=== PATIENT | male | born 1945 | race Caucasian/White ===

== ENCOUNTER 2018-02-25 18:24 | Inpatient (IN) | payer OTHER ==
[~2018-02-25] VITALS: Ht 182.9 cm; Wt 73.0 kg
[2018-02-25 19:03] LABS: BASOPHIL (%) 0.4 % (0-1); EOSINOPHIL (%) 0.4 % (0-5); HEMATOCRIT 28.7 % (38.0-50.0); HEMOGLOBIN 9.3 G/DL (12.5-16.6); IMMATURE GRANULOCYTE (%) 1.5 % (0.0-0.7); LYMPHOCYTE (%) 8.4 % (15-42); LYMPHOCYTE COUNT 0.6 K/uL (1.0-2.8); MCH 31.4 PG (29.0-34.0); MCHC 32.4 G/DL (30.0-36.0); MONOCYTE (%) 13.3 % (3-12); NEUTROPHIL COUNT 5.5 K/uL (1.8-6.4); NRBC (%) 1.5 /100 WBC (0-0); PLATELET COUNT 199 K/uL (156-360); RBC DIS.WIDTH-CV 18.9 % (11.8-14.6); RBC DIS.WIDTH-SD 66.1 % (39-53); RED BLOOD COUNT 2.96 M/uL (4.00-5.50); WHITE BLOOD COUNT 7.2 K/uL (4.1-10.2)
[2018-02-25 19:11] LABS: ALBUMIN 3.2 g/dL (3.2-4.8); CHLORIDE 97 mEq/L (99-109); POTASSIUM 5.2 mEq/L (3.7-5.4); SODIUM 141 mEq/L (136-147)
[2018-02-25 19:12] LABS: INTER. NORMALIZED RATIO 2.1
[2018-02-25 19:13] LABS: GLUCOSE 88 mg/dL (70-99); TOTAL PROTEIN 5.5 g/dL (6.4-8.3)
[2018-02-25 19:14] LABS: PTT 31.9 SEC (25-37)
[2018-02-25 19:15] LABS: TOTAL BILIRUBIN 1.2 mg/dL (0.0-1.0)
[2018-02-25 19:17] LABS: ALKALINE PHOSPHATASE 224 IU/L (3-129); CREATININE 6.1 mg/dL (0.6-1.3); GFR ESTIMATE (CALCULATED) 10 mL/min/ (58.99-99999)
[2018-02-25 19:18] LABS: AST (GOT) 48 IU/L (2-34); UREA NITROGEN (BUN) 47 mg/dL (9-23)
[2018-02-25 19:20] LABS: ALT (GPT) 28 IU/L (3-49)
[2018-02-25 19:22] LABS: TROP-I INTERPRETATION POSITIVE
[2018-02-25 19:26] LABS: TROPONIN-I 0.77 ng/mL (0.0-0.30)
[2018-02-25] MEDS ORDERED: ADULT ASPIRIN R81 MG PO (21:57)
[2018-02-25] MEDS ORDERED: BLOOD PRESSURE (21:58)
[2018-02-25] MEDS ORDERED: BLOOD THINNER (21:59)
[2018-02-26] VITALS (7 sets, daily range): BP systolic 86–137; BP diastolic 52–87
[2018-02-26 02:49] LABS: TROP-I INTERPRETATION POSITIVE
[2018-02-26 02:51] LABS: APPEARANCE SL.HAZY ((CLEAR)); BILIRUBIN NEGATIVE; BLOOD SMALL; COLOR YELLOW ((YELLOW)); GLUCOSE (STRIP) 150; KETONES NEGATIVE; LEUKOCYTES SMALL; NITRITE NEGATIVE; PROTEIN (STRIP) 100; SPECIFIC GRAVITY 1.009 (1.000-1.030); UROBILINOGEN 0.2 MG/DL (0.2-1.0)
[2018-02-26 02:57] LABS: TROPONIN-I 1.13 ng/mL (0.0-0.30)
[2018-02-26 03:09] LABS: BACTERIA NONE SEEN /HPF; EPITHELIAL CELLS NONE SEEN /HPF; MUCUS NONE SEEN /LPF; RED BLOOD CELLS 30-40 /HPF (0-5); UCUL ADDED? YES; WHITE BLOOD CELLS 20-30 /HPF (0-5)
[2018-02-26 08:39] LABS: HEMATOCRIT 32.4 % (38.0-50.0); MCH 30.8 PG (29.0-34.0); MCHC 30.9 G/DL (30.0-36.0); MCV 99.7 FL (86-99); NRBC (%) 0.4 /100 WBC (0-0); PLATELET COUNT 195 K/uL (156-360); RBC DIS.WIDTH-CV 18.8 % (11.8-14.6); RBC DIS.WIDTH-SD 68.1 % (39-53); RED BLOOD COUNT 3.25 M/uL (4.00-5.50); WHITE BLOOD COUNT 6.8 K/uL (4.1-10.2)
[2018-02-26 08:44] LABS: INTER. NORMALIZED RATIO 2.1
[2018-02-26 09:00] LABS: CHLORIDE 98 MEQ/L (99-109); CREATININE 6.4 MG/DL (0.6-1.3); GFR ESTIMATE (CALCULATED) 9 mL/min/ (58.99-99999); POTASSIUM 5.9 MEQ/L (3.7-5.4); SODIUM 141 MEQ/L (136-147); UREA NITROGEN (BUN) 57 mg/dL (9-23)
[2018-02-26 09:02] LABS: GLUCOSE 144 mg/dL (70-99)
[2018-02-26 09:09] LABS: TROP-I INTERPRETATION POSITIVE; TROPONIN-I 1.49 ng/mL (0.0-0.30)
[2018-02-26 20:21] LABS: CHLORIDE 97 MEQ/L (99-109); CREATININE 6.6 MG/DL (0.6-1.3); GFR ESTIMATE (CALCULATED) 9 mL/min/ (58.99-99999); GLUCOSE 201 mg/dL (70-99); POTASSIUM 5.2 MEQ/L (3.7-5.4); SODIUM 139 MEQ/L (136-147); UREA NITROGEN (BUN) 64 mg/dL (9-23)
[2018-02-27 05:19] VITALS: BP 142/64
[2018-02-27 06:06] LABS: HEMATOCRIT 30.2 % (38.0-50.0); HEMOGLOBIN 9.7 G/DL (12.5-16.6); MCH 31.6 PG (29.0-34.0); MCHC 32.1 G/DL (30.0-36.0); MCV 98.4 FL (86-99); NRBC (%) 1.1 /100 WBC (0-0); PLATELET COUNT 212 K/uL (156-360); RBC DIS.WIDTH-CV 18.9 % (11.8-14.6); RED BLOOD COUNT 3.07 M/uL (4.00-5.50); WHITE BLOOD COUNT 11.8 K/uL (4.1-10.2)
[2018-02-27 06:17] LABS: ALBUMIN 3.1 G/DL (3.2-4.8); ALKALINE PHOSPHATASE 185 IU/L (3-129); ALT (GPT) 69 IU/L (3-49); AST (GOT) 84 IU/L (2-34); CHLORIDE 97 MEQ/L (99-109); CREATININE 6.9 MG/DL (0.6-1.3); GFR ESTIMATE (CALCULATED) 8 mL/min/ (58.99-99999); GLUCOSE 162 mg/dL (70-99); POTASSIUM 5.4 MEQ/L (3.7-5.4); SODIUM 140 MEQ/L (136-147); TOTAL BILIRUBIN 1.1 MG/DL (0.0-1.0); TOTAL PROTEIN 5.1 G/DL (6.4-8.3); UREA NITROGEN (BUN) 76 mg/dL (9-23); VANCOMYCIN, TROUGH 11.1 MCG/ML (10-20)
[2018-02-27 06:22] LABS: TROP-I INTERPRETATION POSITIVE; TROPONIN-I 1.73 ng/mL (0.0-0.30)
[2018-02-27 07:24] VITALS: BP 111/85
[2018-02-27 15:20] VITALS: BP 98/74
[2018-02-27 19:25] VITALS: BP 154/99
[2018-02-27 20:43] VITALS: BP 107/78
[2018-02-28] VITALS (8 sets, daily range): BP systolic 103–155; BP diastolic 61–86
[2018-02-28 05:37] LABS: HEMATOCRIT 28.3 % (38.0-50.0); HEMOGLOBIN 9.1 G/DL (12.5-16.6); MCH 31.4 PG (29.0-34.0); MCHC 32.2 G/DL (30.0-36.0); MCV 97.6 FL (86-99); PLATELET COUNT 194 K/uL (156-360); RBC DIS.WIDTH-CV 19.1 % (11.8-14.6); WHITE BLOOD COUNT 9.4 K/uL (4.1-10.2)
[2018-02-28 05:49] LABS: INTER. NORMALIZED RATIO 1.7
[2018-02-28 06:29] LABS: CHLORIDE 99 MEQ/L (99-109); GLUCOSE 158 mg/dL (70-99); SODIUM 144 MEQ/L (136-147); UREA NITROGEN (BUN) 53 mg/dL (9-23)
[2018-02-28 06:37] LABS: CREATININE 5.6 MG/DL (0.6-1.3); GFR ESTIMATE (CALCULATED) 11 mL/min/ (58.99-99999); POTASSIUM 4.2 MEQ/L (3.7-5.4)
[2018-02-28 07:05] LABS: TROP-I INTERPRETATION POSITIVE; TROPONIN-I 1.42 ng/mL (0.0-0.30)
[2018-02-28 11:59] LABS: ANTI-HEPATITIS B CORE (TOTAL) Nonreactive
[2018-02-28 12:07] LABS: HEPATITIS B SURFACE ANTIGEN Nonreactive
[2018-02-28 12:08] LABS: HEPATITIS C ANTIBODY Nonreactive
[2018-02-28 12:10] LABS: HEPATITIS B SURFACE ANTIBODY REACTIVE
[2018-03-01 03:23] LABS: INTER. NORMALIZED RATIO 1.7
[2018-03-01 04:32] VITALS: BP 130/58
[2018-03-01 08:24] VITALS: BP 119/64
[2018-03-01 08:51] LABS: HEMATOCRIT 29.1 % (38.0-50.0); HEMOGLOBIN 9.1 G/DL (12.5-16.6); MCH 31.1 PG (29.0-34.0); MCHC 31.3 G/DL (30.0-36.0); MCV 99.3 FL (86-99); NRBC (%) 2.4 /100 WBC (0-0); PLATELET COUNT 194 K/uL (156-360); RBC DIS.WIDTH-CV 19.4 % (11.8-14.6); RBC DIS.WIDTH-SD 67.3 % (39-53); RED BLOOD COUNT 2.93 M/uL (4.00-5.50); WHITE BLOOD COUNT 8.3 K/uL (4.1-10.2)
[2018-03-01 09:08] LABS: ALBUMIN 3.2 G/DL (3.2-4.8); CHLORIDE 96 MEQ/L (99-109); CREATININE 6.4 MG/DL (0.6-1.3); GFR ESTIMATE (CALCULATED) 9 mL/min/ (58.99-99999); PHOSPHORUS 6.6 mg/dL (2.5-4.9); POTASSIUM 4.9 MEQ/L (3.7-5.4); SODIUM 137 MEQ/L (136-147); UREA NITROGEN (BUN) 62 mg/dL (9-23)
[2018-03-01 09:10] LABS: GLUCOSE 117 mg/dL (70-99)
[2018-03-01 12:33] VITALS: BP 108/61
[2018-03-01 14:56] LABS: HEMATOCRIT 30.5 % (38.0-50.0); HEMOGLOBIN 9.5 G/DL (12.5-16.6); MCV 100.7 FL (86-99)
[2018-03-01 16:49] VITALS: BP 116/83
[2018-03-01 22:34] LABS: HEMATOCRIT 28.8 % (38.0-50.0); HEMOGLOBIN 9.1 G/DL (12.5-16.6); MCV 99.7 FL (86-99)
[2018-03-01 22:41] LABS: INTER. NORMALIZED RATIO 1.9
[2018-03-01 22:55] LABS: PTT 34.7 SEC (25-37)
[2018-03-01 23:10] VITALS: BP 140/60
[2018-03-02 06:08] LABS: HEMATOCRIT 29.8 % (38.0-50.0); HEMOGLOBIN 9.4 G/DL (12.5-16.6); MCH 30.9 PG (29.0-34.0); MCHC 31.5 G/DL (30.0-36.0); NRBC (%) 3.7 /100 WBC (0-0); PLATELET COUNT 212 K/uL (156-360); RBC DIS.WIDTH-CV 20.1 % (11.8-14.6); RBC DIS.WIDTH-SD 67.6 % (39-53); RED BLOOD COUNT 3.04 M/uL (4.00-5.50); WHITE BLOOD COUNT 11.2 K/uL (4.1-10.2)
[2018-03-02 06:12] LABS: INTER. NORMALIZED RATIO 2.1
[2018-03-02 06:37] LABS: CHLORIDE 95 MEQ/L (99-109); CREATININE 5.6 MG/DL (0.6-1.3); GFR ESTIMATE (CALCULATED) 11 mL/min/ (58.99-99999); POTASSIUM 5.5 MEQ/L (3.7-5.4); SODIUM 133 MEQ/L (136-147); UREA NITROGEN (BUN) 52 mg/dL (9-23)
[2018-03-02 06:49] LABS: GLUCOSE 76 mg/dL (70-99); PTT 53.4 SEC (25-37)
[2018-03-02 07:27] VITALS: BP 112/78
[2018-03-02 16:43] VITALS: BP 109/73
[2018-03-02 18:14] LABS: HEMATOCRIT 32.4 % (38.0-50.0); HEMOGLOBIN 10.2 G/DL (12.5-16.6); MCV 99.1 FL (86-99)
[2018-03-02 22:40] VITALS: BP 132/93
[2018-03-03 06:06] LABS: HEMATOCRIT 35.5 % (38.0-50.0); HEMOGLOBIN 10.7 G/DL (12.5-16.6); MCH 30.5 PG (29.0-34.0); MCHC 30.1 G/DL (30.0-36.0); MCV 101.1 FL (86-99); NRBC (%) 4.6 /100 WBC (0-0); RBC DIS.WIDTH-CV 21.1 % (11.8-14.6); RBC DIS.WIDTH-SD 73.1 % (39-53); RED BLOOD COUNT 3.51 M/uL (4.00-5.50); WHITE BLOOD COUNT 25.1 K/uL (4.1-10.2)
[2018-03-03 06:17] LABS: INTER. NORMALIZED RATIO 3.2
[2018-03-03 06:19] LABS: PLATELET COUNT 297 K/uL (156-360)
[2018-03-03 07:24] VITALS: BP 102/67
[2018-03-03 08:42] LABS: INTACT PARATHYROID HORMONE 696 pg/mL (10-69)
[2018-03-03 08:45] LABS: CHLORIDE 84 MEQ/L (99-109); CREATININE 6.8 MG/DL (0.6-1.3); GFR ESTIMATE (CALCULATED) 9 mL/min/ (58.99-99999); GLUCOSE 66 mg/dL (70-99); IRON 151 MCG/DL (35-150); PHOSPHORUS 9.3 mg/dL (2.5-4.9); POTASSIUM 6.5 MEQ/L (3.7-5.4); SODIUM 143 MEQ/L (136-147); TRANSFERRIN (TIBC) 157.7 mg/dL (215-380); TRANSFERRIN SATUR. 96 % (20-55); UREA NITROGEN (BUN) 73 mg/dL (9-23)
[2018-03-03 09:02] LABS: ALBUMIN 3.1 G/DL (3.2-4.8); CHLORIDE 87 MEQ/L (99-109); CREATININE 6.7 MG/DL (0.6-1.3); GFR ESTIMATE (CALCULATED) 9 mL/min/ (58.99-99999); IRON 148 MCG/DL (35-150); POTASSIUM 5.9 MEQ/L (3.7-5.4); SODIUM 137 MEQ/L (136-147); TRANSFERRIN (TIBC) 162.8 mg/dL (215-380); UREA NITROGEN (BUN) 72 mg/dL (9-23)
[2018-03-03 09:03] LABS: GLUCOSE < 10 mg/dL (70-99); TRANSFERRIN SATUR. 91 % (20-55)
[2018-03-03 12:04] VITALS: BP 108/79
[2018-03-03 16:49] VITALS: BP 109/62
[2018-03-03 17:06] LABS: POTASSIUM 5.2 MEQ/L (3.7-5.4); SODIUM 138 MEQ/L (136-147); UREA NITROGEN (BUN) 44 mg/dL (9-23)
[2018-03-03 17:07] LABS: CHLORIDE 97 MEQ/L (99-109); CREATININE 4.2 MG/DL (0.6-1.3); GFR ESTIMATE (CALCULATED) 15 mL/min/ (58.99-99999); GLUCOSE 44 mg/dL (70-99)
[2018-03-03 23:39] VITALS: BP 102/74
[2018-03-04 02:30] VITALS: BP 109/79
[2018-03-04 07:10] LABS: HEMATOCRIT 33.1 % (38.0-50.0); HEMOGLOBIN 10.7 G/DL (12.5-16.6); MCH 30.6 PG (29.0-34.0); MCHC 32.3 G/DL (30.0-36.0); MCV 94.6 FL (86-99); NRBC (%) 2.2 /100 WBC (0-0); PLATELET COUNT 277 K/uL (156-360); RBC DIS.WIDTH-CV 21.2 % (11.8-14.6); RBC DIS.WIDTH-SD 66.5 % (39-53); WHITE BLOOD COUNT 16.8 K/uL (4.1-10.2)
[2018-03-04 07:25] LABS: CHLORIDE 99 MEQ/L (99-109); CREATININE 4.9 MG/DL (0.6-1.3); GFR ESTIMATE (CALCULATED) 13 mL/min/ (58.99-99999); POTASSIUM 5.2 MEQ/L (3.7-5.4); SODIUM 140 MEQ/L (136-147); UREA NITROGEN (BUN) 46 mg/dL (9-23)
[2018-03-04 07:28] LABS: GLUCOSE 88 mg/dL (70-99)
[2018-03-04 09:22] VITALS: BP 113/51
[2018-03-04 12:02] LABS: INTER. NORMALIZED RATIO 4.2
[2018-03-04 16:45] VITALS: BP 90/62
[2018-03-05] MEDS ORDERED: MORPHINE CON20 MG/M1 SL (14:49)
[2018-03-05] MEDS ORDERED: LORAZEPAM2 MG SL (14:49)
== END 2018-03-05 20:58 | DRG 853 ==
LOC: EME 18:24 → EDOF 02-26 00:42 → 4EAST 02-26 00:42 → ENRESERV 02-26 00:50 → 4EAST 02-26 01:48 → ENRESERV 03-01 14:08 → 5EAST 03-01 16:23
PROVIDERS: Emergency Medicine; Hospitalist; Internal Medicine; Internal Medicine Nephrology; Physician Assistant; Student in an Organized Health Care Education/Training Program
PROC: 5A1D70Z Performance of Urinary Filtration, Intermittent, Less than 6 Hours Per Day (ICD-10-PCS; 2018-02-27)
PROC: 0JB70ZZ Excision of Back Subcutaneous Tissue and Fascia, Open Approach (ICD-10-PCS; principal; 2018-02-28)
DX: A41.9 Sepsis, unspecified organism (principal); R65.20 Severe sepsis without septic shock; L89.154 Pressure ulcer of sacral region, stage 4; L03.317 Cellulitis of buttock; J96.01 Acute respiratory failure with hypoxia; Z51.5 Encounter for palliative care; Z66 Do not resuscitate; J20.9 Acute bronchitis, unspecified; J44.0 Chronic obstructive pulmonary disease with (acute) lower respiratory infection; I13.2 Hypertensive heart and chronic kidney disease with heart failure and with stage 5 chronic kidney disease, or end stage renal disease; I50.20 Unspecified systolic (congestive) heart failure; N18.6 End stage renal disease; I08.3 Combined rheumatic disorders of mitral, aortic and tricuspid valves; E87.5 Hyperkalemia; E87.2 Acidosis; I25.5 Ischemic cardiomyopathy; I48.0 Paroxysmal atrial fibrillation; I42.0 Dilated cardiomyopathy; N25.81 Secondary hyperparathyroidism of renal origin; I71.2 Thoracic aortic aneurysm, without rupture; Z99.81 Dependence on supplemental oxygen; Z91.19 Patient's noncompliance with other medical treatment and regimen; I25.10 Atherosclerotic heart disease of native coronary artery without angina pectoris; D63.1 Anemia in chronic kidney disease; N40.1 Benign prostatic hyperplasia with lower urinary tract symptoms; R33.9 Retention of urine, unspecified; R74.8 Abnormal levels of other serum enzymes; I45.10 Unspecified right bundle-branch block; I73.9 Peripheral vascular disease, unspecified; R00.0 Tachycardia, unspecified; R19.7 Diarrhea, unspecified; I25.2 Old myocardial infarction; Z99.2 Dependence on renal dialysis; Z79.01 Long term (current) use of anticoagulants; Z86.711 Personal history of pulmonary embolism; Z86.718 Personal history of other venous thrombosis and embolism; Z86.74 Personal history of sudden cardiac arrest; Z87.891 Personal history of nicotine dependence; Z95.5 Presence of coronary angioplasty implant and graft
CPT/HCPCS: 70450; 71045; 71275; 74177; 80048; 80048 91; 80053; 80069; 80202; 81003; 82948; 83540; 83605; 83970; 84466; 84484; 85014; 85018; 85025; 85027; 85610; 85730; 86704; 86706; 86803; 87040; 87070; 87075; 87076; 87077; 87086; 87185; 87186; 87205; 87340; 88304; 88311; 93005; 93926; 93970; 94640; 94640 76; 94760; 94799; 99202; 99281; 99284; A6214; C1753; J0692; J1170; J1644; J1720; J1815; J1956; J2060; J2250; J2310; J2543; J3010; J3370; J3410; J7040; J7050; J7120; S0028